=== PATIENT | female | born 1960 | race Caucasian/White ===

== ENCOUNTER 2018-12-01 16:31 | Emergency (ER) | payer OTHER, SELFPAY ==
[2018-12-01 16:35] VITALS: BP 119/66; PULSE 66; RESP 16; TEMP 37.2; O2SAT 97
--- NOTE | 2018-12-01 17:50 | ED.ABDPAIN ---
HPI - Abdominal Pain <Jazz Schultz PA-C - Last Filed: 12/01/18 21:40> General Chief Complaint: Abdominal Pain Stated Complaint: Stomach and back pain Time Seen by Provider: 12/01/18 17:43 Source: patient Mode of arrival: ambulatory Limitations: no limitations History of Present Illness HPI narrative: This healthy 58-year-old female comes to ED due to 5 day history of persistent lower quadrant abdominal pain. She states that she had some mild, not particularly bothersome pain on Saturday, however she flew here from [place] and pain was worse, it was hard to sit on the flight. She tried Advil without improvement. She states that she felt like pain got a little better over the weekend, but is worse today. She states that this started on both sides of the lower abdomen around the umbilical area, noticing it more on the right side today. She states that she feels like pain is in her back also, more on the right side today. She describes it as a crampy pain like menstrual cramps. She states this is constant, no exacerbating or alleviating features. She denies nausea or vomiting but notes reduced appetite with this. She states that she had some increased urinary pressure/urgency on but has not had any since, denies dysuria, hematuria or frequency. She denies any blood in the stools, states she had 1 slightly loose stool today otherwise has not had any bowel habit changes (also had a normal bowel movement today, denies constipation). She denies any chest pain, dyspnea or recent illness or exposures. She denies any pain or swelling in her extremities or other new complaints on systems review. Related Data Home Medications Medication Instructions Recorded Confirmed fluoxetine 10 mg PO DAILY 12/01/18 12/01/18 trazodone 100 mg PO DAILY 12/01/18 12/01/18 Previous Rx's Medication Instructions Recorded meloxicam 15 mg PO DAILY #10 tab 12/01/18 nitrofurantoin monohyd/m-cryst 100 mg PO BID 4 Days #8 cap 12/01/18 [Macrobid] Allergies Allergy/AdvReac Type Severity Reaction Status Date / Time No Known Drug Allergies Allergy Verified 12/01/18 16:39 Review of Systems <Jazz Schultz PA-C - Last Filed: 12/01/18 21:40> Review of Systems ROS Unobtainable: All systems reviewed & are unremarkable except as noted in HPI and below PFSH <Jazz Schultz PA-C - Last Filed: 12/01/18 21:40> Medical History (Updated 12/01/18 @ 20:11 by Jazz Schultz PA-C) No chronic problems (Chronic) Surgical History (Updated 12/01/18 @ 18:42 by Jazz Schultz PA-C) Status post left knee surgery (Chronic) Social History Smoking Status: Never smoker Social History Smoking Status: Never smoker Exam <Jazz Schultz PA-C - Last Filed: 12/01/18 21:40> Narrative Exam Narrative: GENERAL APPEARANCE: Patient sitting comfortably, in no distress. Reading HEENT: PERRL, EOMI, no scleral icterus NECK: Supple LUNGS: Clear to auscultation bilaterally. HEART: Rate and rhythm regular, normal S1 and S2, no S3 or S4. ABDOMEN: Soft, nondistended, bowel sounds present x 4 quadrants, no masses palpable, no hepatosplenomegaly. Moderate left lower quadrant and midline tenderness, more tenderness on the right side, with some guarding, no rebound. +right CVAT EXTREMITIES: No edema, no cyanosis, no calf tenderness DERMATOLOGIC: No jaundice or exanthem NEUROLOGIC: Alert and oriented with normal speech, gait and coordination Initial Vital Signs Initial Vital Signs: Vital Signs Temperature 98.9 F 12/01/18 16:35 Pulse Rate 66 12/01/18 16:35 Respiratory Rate 16 12/01/18 16:35 Blood Pressure 119/66 12/01/18 16:35 Pulse Oximetry 97 12/01/18 16:35 <John Waldrop DO - Last Filed: 12/01/18 22:02> Initial Vital Signs Initial Vital Signs: Vital Signs Temperature 98.9 F 12/01/18 16:35 Pulse Rate 66 12/01/18 16:35 Respiratory Rate 16 12/01/18 16:35 Blood Pressure 119/66 12/01/18 16:35 Pulse Oximetry 97 12/01/18 16:35 Course <Jazz Schultz PA-C - Last Filed: 12/01/18 21:40> Additional Information: Advised patient there does not appear to be any acute surgical issue or need for hospital admission. She has had improvement in her pain with Toradol. Eating and drinking without difficulty. Based on her symptoms think UTI is not likely. She does have some RBCs on micro though no bacteria. Started on Macrobid while culture is pending. She agrees to return here if any acutely worsening symptoms or new symptoms such as fever or vomiting while she is here and this week. Otherwise, advised follow-up with PCP went home. She was given a copy of her CT on disc. Orders Ordered: ED Orders 12/01/18 17:50 Complete Blood Count AUTO DIFF Stat Comprehensive Metabolic Panel Stat Lipase Stat Partial Thromboplastin Time Stat Prothrombin Time INR Stat 12/01/18 18:12 CT abdomen pelvis w con Stat 12/01/18 18:40 Urine Culture Stat Urine Microscopic Stat Discontinued Medications Sodium Chloride (Normal Saline 0.9%) 1,000 mls @ 1,000 mls/hr IV BOLUS ONE Stop: 12/01/18 19:12 Last Infusion: 12/01/18 20:22 Dose: 0 mls/hr Admin: 12/01/18 19:07 Dose: 1,000 mls/hr Ketorolac Tromethamine (Toradol) 30 mg IV NOW ONE Stop: 12/01/18 19:51 Last Admin: 12/01/18 19:55 Dose: 30 mg Nitrofurantoin Macrocrystals (Macrobid 100mg Prepack) 1 bottle MISC SEEINSTR ONE Stop: 12/01/18 20:33 Last Admin: 12/01/18 20:38 Dose: 1 bottle Vital Signs - 8 hr 12/01/18 16:35 12/01/18 19:28 12/01/18 20:44 Temperature 98.9 F Pulse Rate 66 52 L 55 L Respiratory Rate 16 16 16 Blood Pressure 119/66 112/64 Blood Pressure [Left Arm] 116/54 L Pulse Oximetry 97 100 98 <John Waldrop DO - Last Filed: 12/01/18 22:02> Orders Ordered: ED Orders 12/01/18 17:50 Complete Blood Count AUTO DIFF Stat Comprehensive Metabolic Panel Stat Lipase Stat Partial Thromboplastin Time Stat Prothrombin Time INR Stat 12/01/18 18:12 CT abdomen pelvis w con Stat 12/01/18 18:40 Urine Culture Stat Urine Microscopic Stat Discontinued Medications Sodium Chloride (Normal Saline 0.9%) 1,000 mls @ 1,000 mls/hr IV BOLUS ONE Stop: 12/01/18 19:12 Last Infusion: 12/01/18 20:22 Dose: 0 mls/hr Admin: 12/01/18 19:07 Dose: 1,000 mls/hr Ketorolac Tromethamine (Toradol) 30 mg IV NOW ONE Stop: 12/01/18 19:51 Last Admin: 12/01/18 19:55 Dose: 30 mg Nitrofurantoin Macrocrystals (Macrobid 100mg Prepack) 1 bottle MISC SEEINSTR ONE Stop: 12/01/18 20:33 Last Admin: 12/01/18 20:38 Dose: 1 bottle Vital Signs - 8 hr 12/01/18 16:35 12/01/18 19:28 12/01/18 20:44 Temperature 98.9 F Pulse Rate 66 52 L 55 L Respiratory Rate 16 16 16 Blood Pressure 119/66 112/64 Blood Pressure [Left Arm] 116/54 L Pulse Oximetry 97 100 98 MDM - Abdominal Pain <Jazz Schultz PA-C - Last Filed: 12/01/18 21:40> Lab Data Attestation: I reviewed the patient's lab results. Result diagrams: 12/01/18 17:50 12/01/18 17:50 Lab Results 12/01/18 12/01/18 12/01/18 Range/Units 17:50 17:50 17:50 WBC 5.2 (4.5-11.0) X10^3/uL RBC 4.26 (4.0-5.2) X10^6/uL Hgb 12.8 (12.0-16.0) g/dL Hct 39.8 (36-46) % MCV 93.6 (80-100) fL MCH 30.1 (26-34) PG MCHC 32.2 (30-36) % RDW 12.9 (11.6-14.8) % Plt Count 277 (150-400) X10^3/uL Neut % (Auto) 52.6 (50-75) % Lymph % (Auto) 35.1 (25-40) % [place] % (Auto) 9.1 (3-14) % Eos % (Auto) 2.7 (2-4) % Baso % (Auto) 0.5 (0-2) % Neut # (Auto) 2700 (7211-0286) /uL Lymph # (Auto) 1800 (3946-2178) /uL [place] # (Auto) 500 (0-900) /uL Eos # (Auto) 100 (0-450) /uL Baso # (Auto) 0 (0-100) /uL PT 12.6 (10.1-12.7) SECONDS INR 1.1 (0.9-1.3) APTT 32 (26.4-36.2) SECONDS Sodium 142 (137-145) mmol/L Potassium 5.1 (3.4-5.1) mmol/L Chloride 105 (98-107) mmol/L Carbon Dioxide 29 (22-32) mmol/L BUN 16 (7-17) mg/dL Creatinine 1.00 (0.52-1.04) mg/dL Estimated GFR 56.7 L (>60) mL/min BUN/Creatinine Ratio 16.0 (6-22) Glucose 93 (70-100) mg/dL Calcium 9.9 (8.4-10.2) mg/dL Total Bilirubin 0.6 (0.2-1.3) mg/dL AST 30 (14-36) IU/L ALT 28 (9-52) IU/L Alkaline Phosphatase 52 (38-126) U/L Total Protein 7.2 (6.3-8.2) g/dL Albumin 4.4 (3.5-5.0) g/dL Globulin 2.8 (1.7-4.1) g/dL Albumin/Globulin Ratio 1.6 (1.0-2.8) Lipase 256 (23-300) U/L Urine RBC (0-5/HPF) Urine WBC (0-5/HPF) Urine Bacteria (None) Ur Culture Indicated? 12/01/18 Range/Units 18:40 WBC (4.5-11.0) X10^3/uL RBC (4.0-5.2) X10^6/uL Hgb (12.0-16.0) g/dL Hct (36-46) % MCV (80-100) fL MCH (26-34) PG MCHC (30-36) % RDW (11.6-14.8) % Plt Count (150-400) X10^3/uL Neut % (Auto) (50-75) % Lymph % (Auto) (25-40) % [place] % (Auto) (3-14) % Eos % (Auto) (2-4) % Baso % (Auto) (0-2) % Neut # (Auto) (8665-8070) /uL Lymph # (Auto) (1447-2106) /uL [place] # (Auto) (0-900) /uL Eos # (Auto) (0-450) /uL Baso # (Auto) (0-100) /uL PT (10.1-12.7) SECONDS INR (0.9-1.3) APTT (26.4-36.2) SECONDS Sodium (137-145) mmol/L Potassium (3.4-5.1) mmol/L Chloride (98-107) mmol/L Carbon Dioxide (22-32) mmol/L BUN (7-17) mg/dL Creatinine (0.52-1.04) mg/dL Estimated GFR (>60) mL/min BUN/Creatinine Ratio (6-22) Glucose (70-100) mg/dL Calcium (8.4-10.2) mg/dL Total Bilirubin (0.2-1.3) mg/dL AST (14-36) IU/L ALT (9-52) IU/L Alkaline Phosphatase (38-126) U/L Total Protein (6.3-8.2) g/dL Albumin (3.5-5.0) g/dL Globulin (1.7-4.1) g/dL Albumin/Globulin Ratio (1.0-2.8) Lipase (23-300) U/L Urine RBC None seen (0-5/HPF) Urine WBC 5-10/hpf H (0-5/HPF) Urine Bacteria None seen (None) Ur Culture Indicated? Specimen cultured Point of care testing: Urine Dip Bedside Urine Glucose Negative Bedside Urine Bilirubin - Negative Bedside Urine Ketone - Negative Urine Specific [place] 1.030 Bedside Urine Occult Blood - Negative Bedside Urine pH 5.5 Bedside Urine Protein - Negative Bedside Urine Urobilinogen - Negative Bedside Urine Nitrite - Negative Bedside Urine Leukocytes + [address] scan - abdomen: Radiologist's impression: [address] [address] [address] Scan Report Signed Patient: Winnie Cunha RMR#: [id number] : 1960Acct:[id number] Age/Sex: 58 / FDate of Service: 12/01/18 Loc: ED Accession Number: [id number] Procedure: CT abdomen pelvis w con Ordering Provider: Jazz Schultz P.A-C PROCEDURE: CT ABDOMEN PELVIS W CON INDICATIONS: 4 days abd pain lower, RQ, R. flank TECHNIQUE: After the administration of intravenous contrast, 5 mm thick sections acquired from the diaphragm to the symphysis. 5 mm coronal and sagittal reformats were acquired. For radiation dose reduction, the following was used: automated exposure control, adjustment of mA and/or kV according to patient size. COMPARISON: None. FINDINGS: Image quality: Excellent. ABDOMEN: Lung bases: Mild bibasilar atelectasis. Heart size is normal. Solid organs: Liver is normal in size and enhancement. Gallbladder is partially decompressed but otherwise unremarkable in CT appearance. Biliary system is non dilated. Pancreas enhances normally. Spleen is normal in size and enhancement. No adrenal nodules. Kidneys demonstrate normal size and enhancement, without hydronephrosis. Peritoneum and bowel: Bowel loops demonstrate normal wall thickness and caliber. Numerous air-filled loops of small bowel demonstrate normal caliber and wall thickness. Moderate scattered fecal material seen throughout the colon. The appendix is not definitively visualized, but no secondary findings for acute inflammation. A likely candidate for the appendix appears to be air-filled and of normal caliber. No intra-abdominal free fluid or air. Nodes and vessels: No retroperitoneal or mesenteric adenopathy by size criteria. Aorta and inferior vena cava are normal in size. Miscellaneous: No ventral hernias. PELVIS: Genitourinary: Bladder wall thickness is normal. Reproductive organs appear unremarkable as visualized. Very small amount of pelvic free fluid likely physiologic in etiology. Miscellaneous: No inguinal hernias or adenopathy. Bones: No suspicious bony lesions. No acute vertebral body compression fractures. Multilevel spondylosis. IMPRESSION: 1. CT abdomen and pelvis without acute abnormality identified. The appendix is not definitively visualized but no secondary findings of acute inflammation in the right lower quadrant. A likely candidate appears air-filled and of normal caliber. No lymphadenopathy. Very small amount of pelvic free fluid likely physiologic in etiology. 2. Numerous loops of air-filled bowel without bowel dilatation or abnormal wall thickening. Moderate amount of scattered fecal material seen throughout the colon. Dictated by: Jeremiah Lui M.D. on 12/01/2018 at 19:26 Approved by: Jeremiah Lui M.D. on 12/01/2018 at 19:36 <John Waldrop DO - Last Filed: 12/01/18 22:02> Lab Data Lab Results 12/01/18 12/01/18 12/01/18 Range/Units 17:50 17:50 17:50 WBC 5.2 (4.5-11.0) X10^3/uL RBC 4.26 (4.0-5.2) X10^6/uL Hgb 12.8 (12.0-16.0) g/dL Hct 39.8 (36-46) % MCV 93.6 (80-100) fL MCH 30.1 (26-34) PG MCHC 32.2 (30-36) % RDW 12.9 (11.6-14.8) % Plt Count 277 (150-400) X10^3/uL Neut % (Auto) 52.6 (50-75) % Lymph % (Auto) 35.1 (25-40) % [place] % (Auto) 9.1 (3-14) % Eos % (Auto) 2.7 (2-4) % Baso % (Auto) 0.5 (0-2) % Neut # (Auto) 2700 (4337-5596) /uL Lymph # (Auto) 1800 (1507-7774) /uL [place] # (Auto) 500 (0-900) /uL Eos # (Auto) 100 (0-450) /uL Baso # (Auto) 0 (0-100) /uL PT 12.6 (10.1-12.7) SECONDS INR 1.1 (0.9-1.3) APTT 32 (26.4-36.2) SECONDS Sodium 142 (137-145) mmol/L Potassium 5.1 (3.4-5.1) mmol/L Chloride 105 (98-107) mmol/L Carbon Dioxide 29 (22-32) mmol/L BUN 16 (7-17) mg/dL Creatinine 1.00 (0.52-1.04) mg/dL Estimated GFR 56.7 L (>60) mL/min BUN/Creatinine Ratio 16.0 (6-22) Glucose 93 (70-100) mg/dL Calcium 9.9 (8.4-10.2) mg/dL Total Bilirubin 0.6 (0.2-1.3) mg/dL AST 30 (14-36) IU/L ALT 28 (9-52) IU/L Alkaline Phosphatase 52 (38-126) U/L Total Protein 7.2 (6.3-8.2) g/dL Albumin 4.4 (3.5-5.0) g/dL Globulin 2.8 (1.7-4.1) g/dL Albumin/Globulin Ratio 1.6 (1.0-2.8) Lipase 256 (23-300) U/L Urine RBC (0-5/HPF) Urine WBC (0-5/HPF) Urine Bacteria (None) Ur Culture Indicated? 12/01/18 Range/Units 18:40 WBC (4.5-11.0) X10^3/uL RBC (4.0-5.2) X10^6/uL Hgb (12.0-16.0) g/dL Hct (36-46) % MCV (80-100) fL MCH (26-34) PG MCHC (30-36) % RDW (11.6-14.8) % Plt Count (150-400) X10^3/uL Neut % (Auto) (50-75) % Lymph % (Auto) (25-40) % [place] % (Auto) (3-14) % Eos % (Auto) (2-4) % Baso % (Auto) (0-2) % Neut # (Auto) (7133-6378) /uL Lymph # (Auto) (9819-6924) /uL [place] # (Auto) (0-900) /uL Eos # (Auto) (0-450) /uL Baso # (Auto) (0-100) /uL PT (10.1-12.7) SECONDS INR (0.9-1.3) APTT (26.4-36.2) SECONDS Sodium (137-145) mmol/L Potassium (3.4-5.1) mmol/L Chloride (98-107) mmol/L Carbon Dioxide (22-32) mmol/L BUN (7-17) mg/dL Creatinine (0.52-1.04) mg/dL Estimated GFR (>60) mL/min BUN/Creatinine Ratio (6-22) Glucose (70-100) mg/dL Calcium (8.4-10.2) mg/dL Total Bilirubin (0.2-1.3) mg/dL AST (14-36) IU/L ALT (9-52) IU/L Alkaline Phosphatase (38-126) U/L Total Protein (6.3-8.2) g/dL Albumin (3.5-5.0) g/dL Globulin (1.7-4.1) g/dL Albumin/Globulin Ratio (1.0-2.8) Lipase (23-300) U/L Urine RBC None seen (0-5/HPF) Urine WBC 5-10/hpf H (0-5/HPF) Urine Bacteria None seen (None) Ur Culture Indicated? Specimen cultured Point of care testing: Urine Dip Bedside Urine Glucose Negative Bedside Urine Bilirubin - Negative Bedside Urine Ketone - Negative Urine Specific [place] 1.030 Bedside Urine Occult Blood - Negative Bedside Urine pH 5.5 Bedside Urine Protein - Negative Bedside Urine Urobilinogen - Negative Bedside Urine Nitrite - Negative Bedside Urine Leukocytes + 70 Esterase Discharge Plan Departure Patient Disposition: Home Clinical Impression: Abdominal pain, lower Discharge Date/Time: 12/01/18 20:45 Interventions: ED Discharge Assessment Last Done: 12/01/18 20:44 Instructions: DI for Urinary Tract Infection (UTI), DI for Abdominal Pain-Adult Activity Restrictions/Additional Instructions: The source of your abdominal pain is not clear today based on your lab work and CT scan. There does not appear to be any acute surgical issue or need for hospital admission. You may have a musculoskeletal source of your pain, and since the anti-inflammatory pain medication seemed to help today, I have prescribed a long-acting cousin of this called meloxicam that you can start tomorrow. You did not have significant bacteria in your urine today, however that has been sent for a culture. Since you had some urinary pressure and urgency when this pain started, we have started you on Macrobid (nitrofurantoin), and I have also sent a prescription for this to the pharmacy for you to take while the culture is pending. As we talked about, you should return to the emergency room if you have acutely worsening symptoms over the weekend or new symptoms such as vomiting or fever. Otherwise, please follow-up with your PCP next week when you return home, and we have sent you with a disc of your CT scan in case any comparison studies are needed. Prescriptions: New meloxicam 15 mg tablet 15 mg PO DAILY Qty: 10 RF: 0 nitrofurantoin monohyd/m-cryst [Macrobid] 100 mg capsule 100 mg PO BID 4 Days Qty: 8 RF: 0 No Action fluoxetine 10 mg Capsule 10 mg PO DAILY RF: 0 trazodone 100 mg Tablet 100 mg PO DAILY RF: 0 Referrals: Leonarda Basilio [Other] <John Waldrop DO - Last Filed: 12/01/18 22:02> [facility] ED Attending Akil Attestation: I was available for consultation during this patient's emergency department encounter
[2018-12-01 18:00] LABS: Add Manual Diff / Slide Review NO; Basophils Absolute Auto 0 /uL (0-100); Basophils Percent Auto 0.5 % (0-2); Eosinophils Absolute Auto 100 /uL (0-450); Eosinophils Percent Auto 2.7 % (2-4); Hematocrit 39.8 % (36-46); Hemoglobin 12.8 g/dL (12.0-16.0); Lymphocytes Absolute Auto 1800 /uL (1100-4500); Lymphocytes Percent Auto 35.1 % (25-40); Mean Corpuscular HGB Conc 32.2 % (30-36); Mean Corpuscular Hemoglobin 30.1 PG (26-34); Mean Corpuscular Volume 93.6 fL (80-100); Monocytes Absolute Auto 500 /uL (0-900); Monocytes Percent Auto 9.1 % (3-14); Neutrophils Absolute Auto 2700 /uL (1500-7000); Neutrophils Percent Auto 52.6 % (50-75); Platelet Count 277 X10^3/uL (150-400); Red Blood Cell Count 4.26 X10^6/uL (4.0-5.2); Red Cell Distribution Width 12.9 % (11.6-14.8); White Blood Cell Count 5.2 X10^3/uL (4.5-11.0)
--- NOTE | 2018-12-01 18:12 | DI.CT.S_ITS ---
PROCEDURE: CT ABDOMEN PELVIS W CON INDICATIONS: 4 days abd pain lower, RQ, R. flank TECHNIQUE: After the administration of intravenous contrast, 5 mm thick sections acquired from the diaphragm to the symphysis. 5 mm coronal and sagittal reformats were acquired. For radiation dose reduction, the following was used: automated exposure control, adjustment of mA and/or kV according to patient size. COMPARISON: None. FINDINGS: Image quality: Excellent. ABDOMEN: Lung bases: Mild bibasilar atelectasis. Heart size is normal. Solid organs: Liver is normal in size and enhancement. Gallbladder is partially decompressed but otherwise unremarkable in CT appearance. Biliary system is non dilated. Pancreas enhances normally. Spleen is normal in size and enhancement. No adrenal nodules. Kidneys demonstrate normal size and enhancement, without hydronephrosis. Peritoneum and bowel: Bowel loops demonstrate normal wall thickness and caliber. Numerous air-filled loops of small bowel demonstrate normal caliber and wall thickness. Moderate scattered fecal material seen throughout the colon. The appendix is not definitively visualized, but no secondary findings for acute inflammation. A likely candidate for the appendix appears to be air-filled and of normal caliber. No intra-abdominal free fluid or air. Nodes and vessels: No retroperitoneal or mesenteric adenopathy by size criteria. Aorta and inferior vena cava are normal in size. Miscellaneous: No ventral hernias. PELVIS: Genitourinary: Bladder wall thickness is normal. Reproductive organs appear unremarkable as visualized. Very small amount of pelvic free fluid likely physiologic in etiology. Miscellaneous: No inguinal hernias or adenopathy. Bones: No suspicious bony lesions. No acute vertebral body compression fractures. Multilevel spondylosis. IMPRESSION: 1. CT abdomen and pelvis without acute abnormality identified. The appendix is not definitively visualized but no secondary findings of acute inflammation in the right lower quadrant. A likely candidate appears air-filled and of normal caliber. No lymphadenopathy. Very small amount of pelvic free fluid likely physiologic in etiology. 2. Numerous loops of air-filled bowel without bowel dilatation or abnormal wall thickening. Moderate amount of scattered fecal material seen throughout the colon. Dictated by: Jeremiah Lui M.D. on 12/01/2018 at 19:26 Approved by: Jeremiah Lui M.D. on 12/01/2018 at 19:36
[2018-12-01 18:14] LABS: INR 1.1 (0.9-1.3); Prothrombin Time 12.6 SECONDS (10.1-12.7)
[2018-12-01 18:17] LABS: PTT Partial Thromboplastin Tim 32 SECONDS (26.4-36.2)
[2018-12-01 18:18] LABS: Alanine Aminotransferase 28 IU/L (9-52); Albumin 4.4 g/dL (3.5-5.0); Albumin Globulin Ratio 1.6 (1.0-2.8); Alkaline Phosphatase 52 U/L (38-126); Aspartate Aminotransferase 30 IU/L (14-36); Bilirubin Total 0.6 mg/dL (0.2-1.3); Blood Urea Nitrogen 16 mg/dL (7-17); Calcium 9.9 mg/dL (8.4-10.2); Carbon Dioxide 29 mmol/L (22-32); Chloride 105 mmol/L (98-107); Estimated Glomerular Filt Rate 56.7 mL/min (>60); Globulin 2.8 g/dL (1.7-4.1); Glucose 93 mg/dL (70-100); HEMOLYSIS < 15 (0-50); Lipase 256 U/L (23-300); Potassium 5.1 mmol/L (3.4-5.1); Sodium 142 mmol/L (137-145); Total Protein 7.2 g/dL (6.3-8.2)
[2018-12-01] MEDS: SODIUM CHLORIDE 0.9% 1,000 ML 1000 ML IV (19:07)
[2018-12-01 19:28] VITALS: BP 116/54; PULSE 52; RESP 16; O2SAT 100
[2018-12-01] MEDS: KETOROLAC 60 MG/2 ML VIAL 30 MG IV (19:55)
[2018-12-01 20:08] LABS: Bacteria Urine None Seen; RBC Urine None Seen (0-5/HPF)
[2018-12-01 20:23] LABS: Culture Indicated Urine Specimen Cultured; WBC Urine 5-10/HPF (0-5/HPF)
[2018-12-01] MEDS: NITROFURANTOIN 100MG PREPACK 1 BOTTLE MISC (20:38)
[2018-12-01 20:44] VITALS: BP 112/64; PULSE 55; RESP 16; O2SAT 98
== END 2018-12-01 20:45 | disposition home or self-care (01) ==
PROVIDERS: Emergency Medicine; Emergency Provider Internal Medicine
DX: R10.30 Lower abdominal pain, unspecified (principal)
CPT/HCPCS: 36591; 74177; 80053; 81003; 81015; 83690; 85025; 85610; 85730; 87086; 96361; 96374; 99283; 99284; J1885; Q9967